=== PATIENT | female | born 1985 | race Caucasian/White ===

== ENCOUNTER 2020-08-08 16:35 | Emergency (ER) | payer OTHER ==
[2020-08-08 16:48] VITALS: BP 115/67; PULSE 67; TEMP 98.2; BMI 35.2
[2020-08-08] MEDS ORDERED: KETOROLAC TROMETHAMINE 30 MG/1 ML VIAL IM ONE (17:24)
[2020-08-08] MEDS ORDERED: KETOROLAC TROMETHAMINE 30 MG/1 ML VIAL ONE (17:24)
== END 2020-08-08 18:10 | disposition home or self-care (01) ==
LOC: JER 16:35 → JERFT 16:35
PROC: 3E0233Z Introduction of Anti-inflammatory into Muscle, Percutaneous Approach (ICD-10-PCS; principal; 2020-08-08)
DX: M54.6 Pain in thoracic spine (principal)
CPT/HCPCS: 99284-25